=== PATIENT | female | born 2000 | race Two or more races ===

== ENCOUNTER 2023-07-12 10:58 | Outpatient (CLI) | payer OTHER | END 2023-07-12 12:52 | disposition home or self-care (01) | LOC: PRENATAL 10:58 | PROVIDERS: ATTEND Obstetrics & Gynecology Maternal & Fetal Medicine | DX: O26.849 Uterine size-date discrepancy, unspecified trimester (principal); O34.219 Maternal care for unspecified type scar from previous cesarean delivery; O99.210 Obesity complicating pregnancy, unspecified trimester; O09.219 Supervision of pregnancy with history of pre-term labor, unspecified trimester; Z3A.15 15 weeks gestation of pregnancy ==